=== PATIENT | female | born 1995 | race Asian ===

== ENCOUNTER 2018-12-24 18:41 | Emergency (ER) | payer OTHER ==
--- NOTE | 2018-12-24 19:08 | PDOC ---
Rapid Medical Evaluation Chief Complaint: Headache Time Seen by Provider: 12/24/18 19:07 Medical Evaluation: 12/24/18 19:07 Pt c/o: inability to sleep since august, sees a neurologist who put her on sleep aids which do not alleviate her s/s also w/intermittent headache Pt on brief exam: vss Pt ordered for: none pt to proceed to the ED Discharge Disposition - Diagnosis Insomnia - Referrals - Patient Instructions - Post Discharge Activity
[2018-12-24 19:16] VITALS: BP 111/67; PULSE 80; TEMP 98; BMI 21.0
--- NOTE | 2018-12-24 19:24 | PDOC ---
History of Present Illness - General Chief Complaint: Headache Stated Complaint: HEADACHE Time Seen by Provider: 12/24/18 19:07 - History of Present Illness Initial Comments: 12/24/18 19:20 23-year-old female without comorbidities presents for evaluation of intermittent headaches 5 months. 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 She sees a neurologist who prescribes her sleep aids but she hasn't taken them lately. She does not have a headache at this moment. Past History - Past Medical History Allergies/Adverse Reactions: Allergies Allergy/AdvReac Type Severity Reaction Status Date / Time No Known Allergies Allergy Verified 12/24/18 19:09 COPD: No - Suicide/Smoking/Psychosocial Hx Smoking History: Never smoked Have you smoked in the past 12 months: No Information on smoking cessation initiated: No Hx Alcohol Use: No Drug/Substance Use Hx: No Review of Systems - Review of Systems Neurological: Yes: Headache *Physical Exam - Vital Signs Last Vital Signs Temp Pulse Resp BP Pulse Ox 98.0 F 80 18 111/67 100 12/24/18 19:05 12/24/18 19:05 12/24/18 19:05 12/24/18 19:05 12/24/18 19:05 - Physical Exam Comments: 12/24/18 19:23 HEAD: NC/AT EYES: Conjuntiva clear Ears: Canals and TM's normal NOSE: No d/c THROAT: Moist mucous membrances, oral pharanx clear, uvula midline NECK: Supple without adenopathy CARDIAC: S1 S2 LUNGS: CTA Full and Equal breath sounds ABDOMEN: Soft NT ND MS: Full ROM in all joints without edema NEUROLOGIC: No gross sensory or motor deficits, NVID SKIN: Normal color and temperature no lesions or rashes Medical Decision Making - Medical Decision Making 12/24/18 21:42 CT negative f/u with neurology *DC/Admit/Observation/Transfer Diagnosis at time of Disposition: Insomnia, Headache - Discharge Dispostion Disposition: HOME Condition at time of disposition: Stable Decision to Admit order: No - Referrals Referrals: Almas Jamil [Primary Care Provider] - Gio Dean MD [Staff Physician] - - Patient Instructions Printed Discharge Instructions: DI for Headache Additional Instructions: On Motrin for headaches. Follow-up with neurology in 1-2 days without fail for further evaluation and treatment options and return to the emergency room should symptoms worsen. - Post Discharge Activity
== END 2018-12-24 22:00 | disposition home or self-care (01) ==
LOC: JER 18:41
DX: G47.00 Insomnia, unspecified (principal); R51 Headache
CPT/HCPCS: 70450-TC; 84703; 99281-25